=== PATIENT | male | born 1945 ===

== ENCOUNTER 2025-02-18 14:39 | Outpatient (CLI) | payer OTHER, SELFPAY ==
[2025-02-18 13:39] LABS: HCT 46.2 % (40.0-50.0); HGB 15.6 g/dL (13.5-17.5); MCH 29.6 pg (27.0-33.0); MCHC 33.8 % (32.0-36.0); MCV 88 fL (80-95); MPV 9.3 fL (8.0-11.0); Platelet Count 268 10^3/uL (130-400); RBC 5.27 10^6/uL (4.36-5.78); RDW 12.8 % (11.8-14.1); RDW-SD 41.0 fL; WBC 5.33 10^3/uL (4.4-10.8)
[2025-02-18 13:40] LABS: Abs Immature Grans 0.01 10^3/uL (0.0-0.06); Immature Grans % 0.2 %
[2025-02-18 13:55] LABS: ALT 29 U/L (16-63); AST 13 U/L (15-37); Albumin 3.7 g/dL (3.4-5.0); Alkaline Phosphatase 73 U/L (46-116); Anion Gap 8.7 mmol/L (3-11); BUN 20 mg/dL (7-18); Bilirubin, Total 0.8 mg/dL (0.2-1.0); CO2 28.3 mmol/L (21.0-32.0); Calcium 8.8 mg/dL (8.5-10.1); Chloride 104 mmol/L (98-107); Estimated GFR 75.61 (mL/min/1.73m2); Glucose 109 mg/dL (74-106); Potassium 4.3 mmol/L (3.5-5.1); Sodium 141 mmol/L (136-145); Total Protein 6.9 g/dL (6.4-8.2)
== END 2025-02-18 14:40 | disposition home or self-care (01) ==
LOC: LBO 14:39
PROVIDERS: PCP Radiology Radiation Oncology; Visit Provider Radiology Radiation Oncology
DX: C61 Malignant neoplasm of prostate (principal)
CPT/HCPCS: 36415; 80053; 84153; 84403; 85025